=== PATIENT | female | born 1960 | race Two or more races ===

== ENCOUNTER 2020-04-13 11:55 | Emergency (ER) | payer OTHER ==
[2020-04-13 12:28] VITALS: BP 167/85; PULSE 78; TEMP 97.8; BMI 43.6
== END 2020-04-13 14:14 | disposition home or self-care (01) ==
LOC: JERFT 11:55
DX: M79.605 Pain in left leg (principal)
CPT/HCPCS: 73523-TC-FY; 93971-TC; 99284-25